=== PATIENT | male | born 1980 | race Caucasian/White ===

== ENCOUNTER 2021-09-10 18:21 | Emergency (ER) | payer OTHER ==
[2021-09-10] MEDS ORDERED: HYDROCODONE/APAP 10/325 TAB ONE (19:06)
--- NOTE | 2021-09-10 20:21 | RAD REPORT ---
EXAM DESCRIPTION: Shoulder Right 2 View - 09/10/2021 7:57 pm CLINICAL HISTORY: PAIN COMPARISON: No comparisons TECHNIQUE: Internal and external rotation views of the right shoulder were obtained as a portable st ud[facility]. FINDINGS: Anterior dislocation of the humeral head is present. There is a comminuted greater tuberos ity fracture with multiple fracture fragments superimposed on the inferior margin of the bony glenoid . No AC joint abnormality seen. Ribcage is intact. IMPRESSION: Anterior dislocation of the right humeral head with comminuted greater tuberosity fractu re.
[2021-09-10] MEDS ORDERED: ETOMIDATE 20 MG/10 ML VIAL IV ONE (21:31)
[2021-09-10] MEDS ORDERED: FENTANYL CITR 100 MCG/2 ML ONE (21:31)
[2021-09-10] MEDS ORDERED: NA CHLORIDE 0.9% 1,000 ML ONE (21:32)
--- NOTE | 2021-09-10 23:36 | EDPHYS ---
Physician Documentation [facility] Name: Marino Powell Age: 41 yrs Sex: Male : 1980 Arrival Date: 09/10/2021 Time: 18:23 Bed 14 Private MD: ED Physician Marshal Gabriel HPI: 09/10 20:58 This 41 yrs old Male presents to ER via Ambulatory with complaints of Shoulder Injury, mh7 Fall Injury. 20:58 The patient or guardian complains of an injury, pain, that is acute. right shoulder. mh7 Context: The [place] park, resulted from a fall, Riding in a golf cart, The patient experiences decreased range of motion, when rotates arm, The patient notes a deformity, an anterior fullness. Onset: The symptoms/episode began/occurred just prior to arrival, today. Modifying factors: the symptoms are alleviated by nothing. The symptoms are aggravated by movement. Associated signs and symptoms: Pertinent negatives: abdominal pain, chest pain, diaphoresis, dyspnea, neck pain, shortness of breath, tingling. Severity of symptoms: At their worst the symptoms were moderate, earlier today, in the emergency department the symptoms are unchanged. Treatment prior to arrival includes: no previous treatment. Historical: - Allergies: 19:02 No Known Allergies; ll1 - PMHx: 19:02 None; ll1 - PSHx: 19:02 None; ll1 - Immunization history:: Adult Immunizations up to date. - Social history:: Smoking status: unknown. ROS: 20:58 Constitutional: Negative for fever, chills, and weight loss, Eyes: Negative for injury, mh7 pain, redness, and discharge, ENT: Negative for injury, pain, and discharge, Neck: Negative for injury, pain, and swelling, Cardiovascular: Negative for chest pain, palpitations, and edema, Respiratory: Negative for shortness of breath, cough, wheezing, and pleuritic chest pain, Abdomen/GI: Negative for abdominal pain, nausea, vomiting, diarrhea, and constipation, Back: Negative for injury and pain, : Negative for injury, bleeding, discharge, and swelling, Neuro: Negative for headache, weakness, numbness, tingling, and seizure, Psych: Negative for depression, anxiety, suicide ideation, homicidal ideation, and hallucinations. 20:58 Allergy/Immunology: Negative for hives, rash, and allergies, Endocrine: Negative for neck swelling, polydipsia, polyuria, polyphagia, and marked weight changes, Hematologic/Lymphatic: Negative for swollen nodes, abnormal bleeding, and unusual bruising. 20:58 Skin: Positive for abrasion(s), of the Right knee. Exam: 20:58 Constitutional: This is a well developed, well nourished patient who is awake, alert, mh7 and in no acute distress. Head/Face: Normocephalic, atraumatic. Eyes: Pupils equal round and reactive to light, extra-ocular motions intact. Lids and lashes normal. Conjunctiva and sclera are non-icteric and not injected. Cornea within normal limits. Periorbital areas with no swelling, redness, or edema. Neck: Trachea midline, no thyromegaly or masses palpated, and no cervical lymphadenopathy. Supple, full range of motion without nuchal rigidity, or vertebral point tenderness. No Meningismus. Chest/axilla: Normal chest wall appearance and motion. Nontender with no deformity. No lesions are appreciated. Cardiovascular: Regular rate and rhythm with a normal S1 and S2. No gallops, murmurs, or rubs. Normal PMI, no JVD. No pulse deficits. Respiratory: Lungs have equal breath sounds bilaterally, clear to auscultation and percussion. No rales, rhonchi or wheezes noted. No increased work of breathing, no retractions or nasal flaring. Abdomen/GI: Soft, non-tender, with normal bowel sounds. No distension or tympany. No guarding or rebound. No evidence of tenderness throughout. Back: No spinal tenderness. No costovertebral tenderness. Full range of motion. Neuro: Awake and alert, GCS 15, oriented to person, place, time, and situation. Cranial nerves II-XII grossly intact. Motor strength 5/5 in all extremities. Sensory grossly intact. Cerebellar exam normal. Normal gait. Psych: Awake, alert, with orientation to person, place and time. Behavior, mood, and affect are within normal limits. 20:58 Skin: injury, abrasion(s), very small abrasion noted, of the Right knee. mh7 20:58 Musculoskeletal/extremity: Extremities: noted in the right shoulder: decreased ROM, mh7 deformity, pain, tenderness, ROM: limited active range of motion, in the right shoulder, limited passive range of motion, in the right shoulder, Circulation is intact in all extremities. Pulses: are normal with no appreciated deficits, Sensation intact. Compartment Syndrome exam of affected extremity: is normal. no numbness, no tingling, no sensation deficit, no palor, no weak pulses, Joints: the right shoulder displays deformity, limited range of motion, pain at rest, painful range of motion, tenderness, Weight bearing: able to fully bear weight, without difficulty, Tendon exam: specific tendon testing normal through active and passive range of motion Vital Signs: 19:02 BP 167 / 89; Pulse 89; Resp 17; Temp 97.7; Pain 10/10; ll1 21:30 BP 121 / 75; Pulse 82; Resp 20; Pulse Ox 100% on R/A; sm5 21:40 BP 131 / 93; Pulse 83; Resp 17; Pulse Ox 97% ; sm5 23:22 BP 128 / 78; Pulse 89; Resp 16; Pulse Ox 94% ; sm5 Procedures: 21:36 Moderate sedation: Pre-procedure assessment: the patient has been NPO 6 hour(s) prior 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 21:36 Reduction: of the right shoulder, using traction, manipulation, Immobilized with [facility] shoulder immobilizer. Patient tolerated well. Post reduction film - reveals normal alignment. MDM: 23:33 Differential diagnosis: Anterior dislocation with fracture, Anterior dislocation mh7 without fracture, Posterior dislocation with fracture, Posterior dislocation without fracture, humeral head fracture, glenoid fracture, DJD. Data reviewed: vital signs, nurses notes, radiologic studies, plain films. Data interpreted: Pulse oximetry: on room air is 98 %. Interpretation: normal. Counseling: I had a detailed discussion with the patient and/or guardian regarding: the historical points, exam findings, and any diagnostic results supporting the discharge/admit diagnosis, radiology results, the need for outpatient follow up, a orthopedic surgeon. Counseling: I had a detailed discussion with the patient and/or guardian regarding: to return to the emergency department if symptoms worsen or persist or if there are any questions or concerns that arise at home. Response to treatment: the patient's symptoms have markedly improved after treatment. 23:[address] [facility] 09/10 18:58 Order name: Shoulder Right (2 View) XRAY; Complete Time: 20:55 ll1 09/10 21:43 Order name: Shoulder Right (2 View) XRAY [facility] 09/10 20:57 Order name: Saline Lock; Complete Time: 21:12 [facility] 09/10 23:33 Order name: Sling; Complete Time: 23:40 [facility] Administered Medications: 19:04 Not Given (Patient Refused): Tetanus-Diphtheria Toxoid Adult 0.5 ml IM once 1 19:30 Drug: [place] (HYDROcodone-acetaminophen) 10 mg-325 mg 1 tabs {Note: RASS 0.} Route: PO; sm5 21:35 Drug: NS 0.9% 1000 ml Route: IV; Rate: 1000 ml; Site: left wrist; sm5 21:36 Drug: Etomidate 30 mg Route: IVP; Site: left wrist; sm5 21:36 Drug: fentaNYL (PF) 50 mcg Route: IVP; Site: left wrist; sm5 Disposition Summary: 09/10/21 23:36 Discharge Ordered Location: Home [facility] Problem: new 7 Symptoms: have improved mh7 Condition: Stable mh7 Diagnosis - Other dislocation of right shoulder joint mh7 - Fracture of greater tuberosity of humerus - Right 7 Followup: mh7 - With: Private Physician - When: 1 - 2 days - Reason: Worsening of condition, Recheck today's complaints, Continuance of care, Re-evaluation by your physician Followup: 7 - With: Sebastián Zamora MD - When: 1 - 2 days - Reason: Worsening of condition, Recheck today's complaints Discharge Instructions: - Discharge Summary Sheet 7 - Humerus Fracture Treated With Immobilization, [id number] mh7 - Shoulder Dislocation, [id number] mh7 Forms: - Medication Reconciliation Form [facility] - Thank You Letter [facility] - Antibiotic Education [facility] - Prescription Opioid Use [facility] Prescriptions: - Ibuprofen 800 mg Oral Tablet - take 1 tablet by ORAL route every 8 hours As needed take with food; 15 tablet; mh7 Refills: 0, Product Selection Permitted - Tylenol-Codeine #3 300 mg-30 mg Oral - take 2 tablet by ORAL route every 6 hours As needed; 30 tablet; Refills: 0, [facility] Product Selection Permitted Signatures: Dispatcher [employer] Betty Pineda, RN RN ll1 Marshal Gabriel MD MD 7 Yumi Novak RN RN 5
--- NOTE | 2021-09-10 23:36 | ER ---
Nurse's Notes [facility] Name: Marino Powell Age: 41 yrs Sex: Male : 1980 Arrival Date: 09/10/2021 Time: 18:23 Bed 14 Private MD: Diagnosis: Other dislocation of right shoulder joint;Fracture of greater tuberosity of humerus-Right Presentation: 09/10 19:02 Chief complaint: Patient states: Fall from golf cart 2 hours [employer]. R shoulder ll1 dislocation. Ebola Screen: Patient denies travel to an Ebola-affected area in the 21 days before illness onset. Initial Sepsis Screen: Does the patient meet any 2 criteria? No. Patient's initial sepsis screen is negative. 19:02 Method Of Arrival: Ambulatory [facility] 19:06 Onset of symptoms was September 10, 2021. 1 19:06 Acuity: ADELINE 2 1 23:41 Coronavirus screen: Client denies travel out of the [place] in the last 14 days. At this 5 time, the client does not indicate any symptoms associated with coronavirus-19. Initial Sepsis Screen: Does the patient meet any 2 criteria? No. Patient's initial sepsis screen is negative. Does the patient have a suspected source of infection? No. Patient's initial sepsis screen is negative. Risk Assessment: Do you want to hurt yourself or someone else? Patient reports no desire to harm self or others. Triage Assessment: 20:45 General: Behavior is appropriate for age. Injury Description: Deformity sustained to sm5 right shoulder. Historical: - Allergies: 19:02 No Known Allergies; ll1 - PMHx: 19:02 None; ll1 - PSHx: 19:02 None; ll1 - Immunization history:: Adult Immunizations up to date. - Social history:: Smoking status: unknown. Screenin:41 Abuse screen: Denies threats or abuse. Denies injuries from another. Nutritional sm5 screening: No deficits noted. Tuberculosis screening: No symptoms or risk factors identified. Fall Risk None identified. Total Streeter Fall Scale indicates No Risk (0-24 pts). Assessment: 20:45 General: Appears uncomfortable. Pain: Complains of pain in right shoulder. Neuro: No sm5 deficits noted. Level of Consciousness is awake, alert, Oriented to person, place, time, situation. Cardiovascular: No deficits noted. Capillary refill < 3 seconds Patient's skin is warm and dry. Respiratory: No deficits noted. Airway is patent Trachea midline Respiratory effort is even, unlabored. Musculoskeletal: R shoulder dislocation Reports pain in right shoulder. 22:15 Reassessment: Patient states feeling better. 5 Vital Signs: 19:02 BP 167 / 89; Pulse 89; Resp 17; Temp 97.7; Pain 10/10; ll1 21:30 BP 121 / 75; Pulse 82; Resp 20; Pulse Ox 100% on R/A; sm5 21:40 BP 131 / 93; Pulse 83; Resp 17; Pulse Ox 97% ; sm5 23:22 BP 128 / 78; Pulse 89; Resp 16; Pulse Ox 94% ; 5 ED Course: 18:23 Patient arrived in ED. am2 19:04 Arm band placed on. ll1 19:06 Triage completed. ll1 19:57 Shoulder Right (2 View) XRAY In Process Unspecified. EDMS 20:35 Yumi Novak, CARLOS ENRIQUE is Primary Nurse. 5 20:47 Marshal Gabriel MD is Attending Physician. 7 22:09 Shoulder Right (2 View) XRAY In Process Unspecified. EDMS 23:34 Sebastián Zamora MD is Referral Physician. 7 23:42 Patient has correct armband on for positive identification. Bed in low position. Call 5 light in reach. Side rails up X2. 23:52 Assist provider with reduction of right shoulder using manipulation, Set up for 5 procedure. Performed by Marshal Gabriel MD Immobilized with shoulder immobilizer Patient tolerated well. IV discontinued, intact, bleeding controlled, No redness/swelling at site. Pressure dressing applied. Administered Medications: 19:04 Not Given (Patient Refused): Tetanus-Diphtheria Toxoid Adult 0.5 ml IM once ll1 19:30 Drug: [place] (HYDROcodone-acetaminophen) 10 mg-325 mg 1 tabs {Note: RASS 0.} Route: PO; sm5 21:35 Drug: NS 0.9% 1000 ml Route: IV; Rate: 1000 ml; Site: left wrist; sm5 21:36 Drug: Etomidate 30 mg Route: IVP; Site: left wrist; sm5 21:36 Drug: fentaNYL (PF) 50 mcg Route: IVP; Site: left wrist; sm5 Outcome: 23:36 Discharge ordered by . jemma 23:53 Discharged to home ambulatory, with significant other. 5 23:53 Condition: good 23:53 Discharge instructions given to patient, significant other, Instructed on discharge instructions, follow up and referral plans. no drinking with medication, medication usage, Demonstrated understanding of instructions, follow-up care, medications, Prescriptions given X 2. 23:53 Patient left the ED. 5 Signatures: Dispatcher [employer] EDMS Linda Ariza Betty Lang, RN RN 1 Marshal Gabriel MD MD 7 Yumi Novak RN RN 5
[2021-09-10 23:59] VITALS: TEMP 97.7
[2021-09-11 00:18] VITALS: BP 128/78; O2SAT 94
--- NOTE | 2021-09-11 07:32 | RAD REPORT ---
EXAM DESCRIPTION: Shoulder Right 2 View - 09/10/2021 10:09 pm CLINICAL HISTORY: Post reduction COMPARISON: Shoulder Right 2 View dated 09/10/2021 TECHNIQUE: Two views the right shoulder were obtained as a portable exam labeled post reduction. FINDINGS: Humeral head has been reduced to anatomic position. Greater tuberosity fracture fragments are again noted remaining closely approximated to origin. AC joint is normal in appearance. No acute or suspicious findings. IMPRESSION: Humeral head has been reduced to anatomic position.
== END 2021-09-10 23:53 | disposition home or self-care (01) ==
LOC: ER 18:21
PROC: 0RSJXZZ Reposition Right Shoulder Joint, External Approach (ICD-10-PCS; principal; 2021-09-10)
DX: S42.251A Displaced fracture of greater tuberosity of right humerus, initial encounter for closed fracture (principal); S80.211A Abrasion, right knee, initial encounter; W17.89XA Other fall from one level to another, initial encounter; Y92.9 Unspecified place or not applicable
CPT/HCPCS: 73030 ×2; 96375; 96374; 99284; 23665; J3010; J7030